=== PATIENT | female | born 1995 | race Caucasian/White ===

== ENCOUNTER 2016-08-18 16:48 | Emergency (ER) | payer MEDICAID ==
[~2016-08-18] VITALS: Ht 162.6 cm; Wt 98.5 kg
[2016-08-18 18:43] VITALS: BP 138/70
== END 2016-08-18 18:44 | disposition home or self-care (01) ==
LOC: ED 16:48
DX: S39.012A Strain of muscle, fascia and tendon of lower back, initial encounter (principal); M54.31 Sciatica, right side; X58.XXXA Exposure to other specified factors, initial encounter; Y93.89 Activity, other specified; Y92.89 Other specified places as the place of occurrence of the external cause; Y99.8 Other external cause status
CPT/HCPCS: J1885

== ENCOUNTER 2016-08-19 18:47 | Emergency (ER) | payer MEDICAID ==
[~2016-08-19] VITALS: Ht 162.6 cm; Wt 98.4 kg
[2016-08-19 20:37] VITALS: BP 136/85
== END 2016-08-19 20:37 | disposition home or self-care (01) ==
LOC: ED 18:47
DX: M54.41 Lumbago with sciatica, right side (principal)
CPT/HCPCS: J1170; J2930; Q0162

== ENCOUNTER 2016-08-25 16:08 | Emergency (ER) | payer MEDICAID ==
[2016-08-25 16:18] VITALS: BP 131/68
== END 2016-08-25 16:57 | disposition home or self-care (01) ==
LOC: ED 16:08
DX: Z02.89 Encounter for other administrative examinations (principal)

== ENCOUNTER 2016-10-30 18:19 | Emergency (ER) | payer MEDICAID ==
[2016-10-30 18:56] LABS: UA SPECIFIC GRAVITY 1.025 (1.005-1.035); microscopic required? YES; urine erythrocyte NEGATIVE (NEGATIVE)
[2016-10-30 19:02] LABS: BASOPHIL % 0.5 % (0-2); PLATELET COUNT 326 x10^3mcL (130-400); RED CELL DISTRIBUTION WIDTH 13.9 % (11.5-14.5)
[2016-10-30 19:05] LABS: CALCIUM 9.2 mg/dL (8.5-10.1); CHLORIDE SERUM 103 mmol/L (98-107); CREATININE SERUM 0.7 mg/dL (0.6-1.0); GFR1 > 60 mL/min; GLUCOSE SERUM 92 mg/dL (74-106); POTASSIUM SERUM 3.9 mmol/L (3.5-5.1); SODIUM SERUM 138 mmol/L (136-145)
[2016-10-30 19:10] LABS: ALBUMIN 3.9 g/dL (3.4-5.0); ALKALINE PHOSPHATASE 70 U/L (46-116); ALT/SGPT 29 U/L (14-59); AST/SGOT 20 U/L (15-37); BILIRUBIN DIRECT 0.12 mg/dL (0.0-0.2); BILIRUBIN TOTAL 0.2 mg/dL (0.20-1.00); LIPASE 136 IU/L (73-393); TOTAL PROTEIN, SERUM 7.9 g/dL (6.4-8.2)
[2016-10-30 20:01] VITALS: BP 136/86
== END 2016-10-30 20:01 | disposition home or self-care (01) ==
LOC: ED 18:19
PROVIDERS: Emergency Medicine
DX: O23.11 Infections of bladder in pregnancy, first trimester (principal); Z3A.01 Less than 8 weeks gestation of pregnancy
CPT/HCPCS: 36415

== ENCOUNTER 2018-07-15 16:06 | Emergency (ER) | payer MEDICAID ==
[~2018-07-15] VITALS: Ht 160 cm; Wt 96.6 kg
[2018-07-15 16:07] VITALS: Ht 160 cm; Wt 96.6 kg
[2018-07-15 17:04] LABS: UA SPECIFIC GRAVITY 1.015 (1.005-1.035); microscopic required? YES; urine erythrocyte NEGATIVE (NEGATIVE)
[2018-07-15 19:46] VITALS: BP 128/76
== END 2018-07-15 19:46 | disposition home or self-care (01) ==
LOC: ED 16:06
PROVIDERS: Specialist
DX: O26.891 Other specified pregnancy related conditions, first trimester (principal); M54.9 Dorsalgia, unspecified; Z3A.09 9 weeks gestation of pregnancy